=== PATIENT | male | born 1995 | race African-American/Black ===

== ENCOUNTER 2017-09-24 18:29 | Emergency (ER) | payer SELFPAY ==
[2017-09-24] MEDS ORDERED: Ondansetron 4 MG Tab.DIS PO ONE (19:17)
--- NOTE | 2017-09-24 19:20 | EDM.PDOC ---
ED HPI GENERAL MEDICAL PROBLEM - General Chief Complaint: General Stated Complaint: DRANK TOO MUCH ALCOHOL Time Seen by Provider: 09/24/17 19:15 - History of Present Illness INITIAL COMMENTS - FREE TEXT/NARRATIVE: HISTORY AND PHYSICAL: History of present illness: Patient 22-year-old male presents with concern of vomiting he states he had consumed some alcohol tonight and vomited 1 he denies abdominal pain denies any other concern Review of systems: As per history of present illness and below otherwise all systems reviewed and negative. Past medical history: As per history of present illness and as reviewed below otherwise noncontributory. Surgical history: As per history of present illness and as reviewed below otherwise noncontributory. Social history: No reported history of drug or alcohol abuse. Family history: As per history of present illness and as reviewed below otherwise noncontributory. Physical exam: HEENT: Atraumatic, normocephalic, pupils reactive, negative for conjunctival pallor or scleral icterus, mucous membranes moist, throat clear, neck supple, nontender, trachea midline. Lungs: Clear to auscultation, breath sounds equal bilaterally, chest nontender. Heart: S1S2, regular, negative for clicks, rubs, or JVD. Abdomen: Soft, nondistended, nontender. Negative for masses or hepatosplenomegaly. Negative for costovertebral tenderness. Pelvis: Stable nontender. Genitourinary: Deferred. Rectal: Deferred. Extremities: Atraumatic, negative for cords or calf pain. Neurovascular unremarkable. Neuro: Awake, alert, oriented. Cranial nerves II through XII unremarkable. Cerebellum unremarkable. Motor and sensory unremarkable throughout. Exam nonfocal. Diagnostics: None Therapeutics: Zofran 4 mg ODT Impression: #1 gastritis Definitive disposition and diagnosis as appropriate pending reevaluation and review of above. ED ROS GENERAL - Review of Systems Review Of Systems: ROS reveals no pertinent complaints other than HPI. ED EXAM, GENERAL - Physical Exam Exam: See Below (See dictation) Course - Vital Signs Last Recorded V/S: Last Vital Signs Temp 36.4 C 09/24/17 19:00 Pulse 57 L 09/24/17 19:00 Resp 18 09/24/17 19:00 BP 122/63 09/24/17 19:00 Pulse Ox 95 09/24/17 19:00 - Orders/Labs/Meds Orders: Active Orders 24 hr Category Date Time Status Ondansetron [Zofran ODT] Med 09/24/17 19:17 Once 4 mg PO ONETIME ONE Departure - Departure Time of Disposition: 19:19 Disposition: Home, Self-Care 01 Condition: Good Clinical Impression: Gastritis - Discharge Information Referrals: PCP,None [Primary Care Provider] - Additional Instructions: The following information is given to patients seen in the emergency department who are being discharged to home. This information is to outline your options for follow-up care. We provide all patients seen in our emergency department with a follow-up referral. The need for follow-up, as well as the timing and circumstances, are variable depending upon the specifics of your emergency department visit. If you don't have a primary care physician on staff, we will provide you with a referral. We always advise you to contact your personal physician following an emergency department visit to inform them of the circumstance of the visit and for follow-up with them and/or the need for any referrals to a consulting specialist. The emergency department will also refer you to a specialist when appropriate. This referral assures that you have the opportunity for followup care with a specialist. All of these measure are taken in an effort to provide you with optimal care, which includes your followup. Under all circumstances we always encourage you to contact your private physician who remains a resource for coordinating your care. When calling for followup care, please make the office aware that this follow-up is from your recent emergency room visit. If for any reason you are refused follow-up, please contact the [facility] emergency department at and asked to speak to the emergency department charge nurse. [facility] [address] [place] [id number] Stop drinking [id number] Zantac or Pepcid as directed push fluids follow- up clinic as needed as discussed and return as needed as discussed - My Orders Last 24 Hours: My Active Orders 09/24/17 19:17 Ondansetron [Zofran ODT] 4 mg PO ONETIME ONE - Assessment/Plan Last 24 Hours: My Active Orders 09/24/17 19:17 Ondansetron [Zofran ODT] 4 mg PO ONETIME ONE
== END 2017-09-24 19:35 | disposition home or self-care (01) ==
LOC: MW.ED 18:29
DX: K29.70 Gastritis, unspecified, without bleeding (principal)
CPT/HCPCS: 99283; A9270; 99282

== ENCOUNTER 2018-11-26 19:18 | Emergency (ER) | payer BC ==
[2018-11-26] MEDS ORDERED: Sodium Chloride 0.9% 1,000 ML IV ONE (19:36)
--- NOTE | 2018-11-26 19:37 | EDM.PDOC ---
ED HPI GENERAL MEDICAL PROBLEM - General Chief Complaint: Abdominal Pain Stated Complaint: STOMACH PAIN Time Seen by Provider: 11/26/18 19:36 Source of Information: Reports: Patient History Limitations: Reports: No Limitations - History of Present Illness INITIAL COMMENTS - FREE TEXT/NARRATIVE: HISTORY AND PHYSICAL: History of present illness: Presents to the emergency room with complaints of generalized abdominal pain ( cramping) and diarrhea over the past 24 hours. He states he is having several loose stools at least hourly since yesterday afternoon. He denies any blood or mucus in his stools. He denies any new foods or introducing of unusual foods into his diet. No recent travel. Patient denies any fever, chills, headache, change in vision, syncope or near syncope. Denies any chest pain, back pain, shortness of breath or cough. Denies any nausea, vomiting, constipation or dysuria. Has not noted any blood in urine or stool. Patient has been eating and drinking appropriately. Review of systems: As per history of present illness and below otherwise all systems reviewed and negative. Past medical history: As per history of present illness and as reviewed below otherwise noncontributory. Surgical history: As per history of present illness and as reviewed below otherwise noncontributory. Social history: See social history for further information Family history: As per history of present illness and as reviewed below otherwise noncontributory. Physical exam: General: Well-developed and well-nourished 23-year-old -[place] male. Alert and oriented. Nontoxic appearing and in mild distress from abdominal pain. HEENT: Atraumatic, normocephalic, pupils equal and reactive bilaterally, negative for conjunctival pallor or scleral icterus, mucous membranes moist, TMs normal bilaterally, throat clear, neck supple, nontender, trachea midline. No drooling or trismus noted. No meningeal signs. No hot potato voice noted. Lungs: Clear to auscultation, breath sounds equal bilaterally, chest nontender. Heart: S1S2, regular rate and rhythm without overt murmur Abdomen: Soft, nondistended, mild nonspecific tenderness in all 4 quadrants. Negative for masses or hepatosplenomegaly. Negative for costovertebral tenderness. Pelvis: Stable nontender. Genitourinary: Deferred. Rectal: Deferred. Skin: Intact, warm, dry. No lesions or rashes noted. Extremities: Atraumatic, moves all extremities per self without difficulty or deficits, negative for cords or calf pain. Neurovascular unremarkable. Neuro: Awake, alert, oriented. Cranial nerves II through XII unremarkable. Cerebellum unremarkable. Motor and sensory unremarkable throughout. Exam nonfocal. Notes: Lab work is unremarkable. Patient declines to give a stool study at this time. He states he feels better after the IV fluids and Toradol/Bentyl. He would like to defer doing a CT of the abdomen and pelvis. He'll follow-up with his primary care provider as needed. Supportive care measures were reviewed and discussed. Voices understanding and is agreeable to plan of care. Denies any further questions or concerns at this time. Diagnostics: CBC, CMP, stool studies, UA, CT abdomen and pelvis Therapeutics: IV fluid, Bentyl, Toradol Prescription: None Impression: Diarrhea Plan: 1. Increase your oral fluids. [place] diet, advance as tolerated. 2. Follow up with your primary care provider as we discussed. Return to the ED as needed and as discussed. Definitive disposition and diagnosis as appropriate pending reevaluation and review of above. Abdomen Pain Score (Numeric/FACES): 10 - Related Data Allergies Allergy/AdvReac Type Severity Reaction Status Date / Time No Known Allergies Allergy Verified 11/26/18 19:31 Home Meds: Home Meds . [No Known Home Meds] 09/24/17 [History] Past Medical History - Past Health History Medical/Surgical History: Denies Medical/Surgical History HEENT History: Reports: None Cardiovascular History: Reports: None Respiratory History: Reports: None Gastrointestinal History: Reports: None Genitourinary History: Reports: None Musculoskeletal History: Reports: None Neurological History: Reports: None Psychiatric History: Reports: Anxiety Endocrine/Metabolic History: Reports: None Hematologic History: Reports: None Immunologic History: Reports: None Oncologic (Cancer) History: Reports: None Dermatologic History: Reports: None - Infectious Disease History Infectious Disease History: Reports: None - Past Surgical History Head Surgeries/Procedures: Reports: None Social & Family History - Family History Family Medical History: Unobtainable - Tobacco Use Smoking Status *Q: Never Smoker - Caffeine Use Caffeine Use: Reports: None - Recreational Drug Use Recreational Drug Use: No ED ROS GENERAL - Review of Systems Review Of Systems: ROS reveals no pertinent complaints other than HPI. ED EXAM, GI/ABD - Physical Exam Exam: See Below (See dictation) Course - Vital Signs Last Recorded V/S: Last Vital Signs Temp 98.2 F 11/26/18 19:32 Pulse 82 11/26/18 19:32 Resp 18 11/26/18 19:32 BP 126/79 11/26/18 19:32 Pulse Ox 98 11/26/18 19:32 - Orders/Labs/Meds Orders: Active Orders 24 hr Category Date Time Status Abdomen Pelvis w Cont [CT] Stat Exams 11/26/18 19:40 Stop Req COMPREHENSIVE METABOLIC PN,CMP [CHEM] Stat Lab 11/26/18 20:03 Received CULTURE STOOL + CAMPY+SHIGATOX [RM] Stat Lab 11/26/18 19:37 Ordered Clostridium Difficile [CDIFF TOX A+B] [OP] Stat Lab 11/26/18 19:37 Ordered OVA & PARASITES BY IMMUNOASSAY [MREF] Stat Lab 11/26/18 19:37 Ordered Labs: Laboratory Tests 11/26/18 11/26/18 Range/Units 17:54 20:03 WBC 5.59 (4.0-11.0) K/uL RBC 5.76 (4.50-5.90) M/uL Hgb 18.2 H (13.0-17.0) g/dL Hct 50.6 H (38.0-50.0) % MCV 87.8 (80.0-98.0) fL MCH 31.6 (27.0-32.0) pg MCHC 36.0 (31.0-37.0) g/dL RDW Std Deviation 40.4 (28.0-62.0) fl RDW Coeff of Symone 13 (11.0-15.0) % Plt Count 114 L (150-400) K/uL MPV 12.00 (7.40-12.00) fL Neut % (Auto) 72.1 (48.0-80.0) % Lymph % (Auto) 18.6 (16.0-40.0) % [place] % (Auto) 8.9 (0.0-15.0) % Eos % (Auto) 0.2 (0.0-7.0) % Baso % (Auto) 0.2 (0.0-1.5) % Neut # (Auto) 4.0 (1.4-5.7) K/uL Lymph # (Auto) 1.0 (0.6-2.4) K/uL [place] # (Auto) 0.5 (0.0-0.8) K/uL Eos # (Auto) 0.0 (0.0-0.7) K/uL Baso # (Auto) 0.0 (0.0-0.1) K/uL Nucleated RBC % 0.0 /100WBC Nucleated RBCs # 0 K/uL Urine Color YELLOW Urine Appearance CLEAR Urine pH 6.0 (5.0-8.0) Ur Specific [place] 1.025 (1.001-1.035) Urine Protein NEGATIVE (NEGATIVE) mg/dL Urine Glucose (UA) NEGATIVE (NEGATIVE) mg/dL Urine Ketones NEGATIVE (NEGATIVE) mg/dL Urine Occult Blood NEGATIVE (NEGATIVE) Urine Nitrite NEGATIVE (NEGATIVE) Urine Bilirubin NEGATIVE (NEGATIVE) Urine Urobilinogen 0.2 (<2.0) EU/dL Ur Leukocyte Esterase NEGATIVE (NEGATIVE) Meds: Medications Discontinued Medications Generic Name Dose Route Start Last Admin Trade Name Elle PRN Reason Stop Dose Admin Dicyclomine HCl 10 mg 11/26/18 19:39 11/26/18 20:18 Bentyl PO 11/26/18 19:40 10 mg ONETIME ONE Administration Sodium Chloride 1,000 mls @ 999 mls/hr 11/26/18 19:36 11/26/18 20:07 Normal Saline IV 11/26/18 20:36 999 mls/hr STAT ONE Administration Ketorolac Tromethamine 30 mg 11/26/18 19:39 11/26/18 20:05 Toradol IVPUSH 11/26/18 19:40 30 mg ONETIME ONE Administration Departure - Departure Time of Disposition: 20:42 Disposition: Home, Self-Care 01 Clinical Impression: Diarrhea Qualifiers: Diarrhea type: unspecified type Qualified Code(s): R19.7 - Diarrhea, unspecified - Discharge Information Instructions: Diarrhea, Adult Referrals: PCP,Unknown [Primary Care Provider] - Forms: ED Department Discharge Additional Instructions: The following information is given to patients seen in the emergency department who are being discharged to home. This information is to outline your options for follow-up care. We provide all patients seen in our emergency department with a follow-up referral. The need for follow-up, as well as the timing and circumstances, are variable depending upon the specifics of your emergency department visit. If you don't have a primary care physician on staff, we will provide you with a referral. We always advise you to contact your personal physician following an emergency department visit to inform them of the circumstance of the visit and for follow-up with them and/or the need for any referrals to a consulting specialist. The emergency department will also refer you to a specialist when appropriate. This referral assures that you have the opportunity for follow-up care with a specialist. All of these measure are taken in an effort to provide you with optimal care, which includes your follow-up. Under all circumstances we always encourage you to contact your private physician who remains a resource for coordinating your care. When calling for follow-up care, please make the office aware that this follow-up is from your recent emergency room visit. If for any reason you are refused follow-up, please contact the [facility] Emergency Department at and asked to speak to the emergency department charge nurse. [facility] [address] [place] [id number] [place] [address] 1. Increase your oral fluids. [place] diet, advance as tolerated. 2. Follow up with your primary care provider as we discussed. 3. If symptoms return, worsen or new symptoms develop please return to the emergency room. Return to the ED as needed and as discussed. - My Orders Last 24 Hours: My Active Orders 11/26/18 19:37 CULTURE STOOL + CAMPY+SHIGATOX [RM] Stat Clostridium Difficile [CDIFF TOX A+B] [OP] Stat OVA & PARASITES BY IMMUNOASSAY [MREF] Stat 11/26/18 19:40 Abdomen Pelvis w Cont [CT] Stat 11/26/18 20:03 COMPREHENSIVE METABOLIC PN,CMP [CHEM] Stat - Assessment/Plan Last 24 Hours: My Active Orders 11/26/18 19:37 CULTURE STOOL + CAMPY+SHIGATOX [RM] Stat Clostridium Difficile [CDIFF TOX A+B] [OP] Stat OVA & PARASITES BY IMMUNOASSAY [MREF] Stat 11/26/18 19:40 Abdomen Pelvis w Cont [CT] Stat 11/26/18 20:03 COMPREHENSIVE METABOLIC PN,CMP [CHEM] Stat
[2018-11-26] MEDS ORDERED: Ketorolac 30 MG/ML SDV IVPUSH ONE (19:39)
[2018-11-26] MEDS ORDERED: Dicyclomine 10 MG Cap PO ONE (19:39)
[2018-11-26 20:50] LABS: CHLORIDE,CL 103 mmol/L (98-107); SODIUM,NA 137 mmol/L (136-148)
== END 2018-11-26 21:08 | disposition home or self-care (01) ==
LOC: MW.ED 19:18
DX: R19.7 Diarrhea, unspecified (principal)
CPT/HCPCS: 36415; 80053; 81003; 85025; 96361; 96374; 99284; A9270; J1885; J7040